=== PATIENT | male | born 1970 | race Asian ===

== ENCOUNTER → 2017-12-09 | Outpatient (CLI) | payer OTHER | END | disposition home or self-care (01) | LOC: RAD 11:49 → EDSTATUS 12:45 | PROVIDERS: ATTEND Nurse Practitioner Family | DX: E04.1 Nontoxic single thyroid nodule (principal); M79.89 Other specified soft tissue disorders; R59.9 Enlarged lymph nodes, unspecified | CPT/HCPCS: 76536 ==